=== PATIENT | male | born 1960 | race Caucasian/White ===

== ENCOUNTER 2016-10-03 06:52 | Day surgery (SDC) | payer OTHER ==
[~2016-10-03] VITALS: Ht 172.7 cm; Wt 103.6 kg
[~2016-10-03 06:52] MED LIST: AMLO5TAB2 PO; BACL20TA PO; MORP1TAB26 PO; MSIR30 PO; NITR1SUB3; POLY3350 PO
[2016-10-03 07:18] VITALS: BP 157/115; PULSE 59; RESP 20; TEMP 98.3; O2SAT 94
[2016-10-03 07:48] LABS: AUTOMATED NEUTROPHIL # 3.2 TH/MM3 (1.8-7.7); BASOPHIL % 0.8 % (0.0-2.0); EOSINOPHIL # 0.3 TH/MM3 (0-0.4); HEMATOCRIT 43.9 % (39.0-51.0); HEMO FLAGS DIFF FINAL; LYMPH % 35.4 % (9.0-44.0); LYMPHOCYTE # 2.2 TH/MM3 (1.0-4.8); MEAN CELL VOLUME 87.5 FL (80.0-100.0); MEAN CORPUSCULAR HEMOGLOBIN 30.1 PG (27.0-34.0); MEAN CORPUSCULAR HGB CONC 34.3 % (32.0-36.0); MONO % 8.9 % (0.0-8.0); NEUT % 50.9 % (16.0-70.0); PLATELET COUNT 215 TH/MM3 (150-450); RED BLOOD COUNT 5.02 MIL/MM3 (4.50-5.90); WHITE BLOOD COUNT 6.2 TH/MM3 (4.0-11.0)
[2016-10-03 07:55] LABS: APTT (PATIENT) 26.4 SEC (24.3-30.1); PROTHROMBIN TIME - PATIENT 10.8 SEC (9.8-11.6)
[2016-10-03 07:58] LABS: BICARBONATE 29.1 MEQ/L (21.0-32.0); POTASSIUM 4.2 MEQ/L (3.5-5.1)
[2016-10-03] MEDS ORDERED: DIAZEPAM 10 MG TAB PO ONE (08:15)
--- NOTE | 2016-10-03 08:57 | PD.RAD ---
Post Procedure Progress Note Pre Procedure Diagnosis: (1) Lumbar disc disease with radiculopathy Post Procedure Diagnosis: (1) Lumbar disc disease with radiculopathy Procedure Date: October 03, 2016 Supervising Radiologist: Rob Cyr JR Proceduralist/Assist: Arielle Bolton, RT(R)(), Pedro Shaw RT(R) Anesthesia: Local Plan of Activity Patient to Unit: [facility] Patient Condition: Good See PACS Report for procedural detail/treatment Spinal Procedure Myelogram L4-L5 Fluid Description: Clear Puncture Time: 08:45 Findings: Complete myelogram from lumbar access. CT pending. Jr. Ger,Rob Perea MD October 03, 2016 08:57
[2016-10-03] MEDS ORDERED: oxyCODONE/ACETAMINOPHEN 5 MG/325 MG TAB PO PRN (09:00)
[2016-10-03] MEDS ORDERED: IOHEXOL 300 MG/ML 50 ML BTL (for RAD DIAG) ONE (09:11)
--- NOTE | 2016-10-03 10:05 | RADRPT ---
EXAM DATE/TIME: 10/03/2016 09:27 [facility] COMPARISON: No previous studies available for comparison. INDICATIONS : Patient with a history of myelopathy. MEDICAL HISTORY : DDD lumbar/cervical neuropathy bilateral legs Arthritis GERD Barretts esophagus Claustrophobia Headaches Dizziness SURGICAL HISTORY : Lumbar fusion Cholecystectomy Lt. hip replacement Cervical and lumbar hardware ENCOUNTER: Initial ACUITY: > 1 year PAIN SCORE: 8/10 LOCATION: Headache LUMBAR PUNCTURE TIME: 0845 hours FLUORO TIME: 1.0 minutes IMAGE SERIES: 3 CONTRAST: 18 cc Omnipaque (iohexol) 300 ACCESS LEVEL: L4-5 PROCEDURE : 1. Fluoroscopic guided lumbar puncture. 2. Instillation of intrathecal contrast. 3. Total spinal axis myelogram. The risks, benefits and alternatives to the procedure were explained and verbal and written consent w as obtained. The site was prepped in sterile fashion. Full sterile technique was used, including ca p, mask, sterile gloves and gown and a large sterile sheet. Hand hygiene and 2% chlorhexidine and/or betadine/alcohol prep was utilized per protocol for cutaneous antisepsis. The skin and subcutaneous tissues were infiltrated with local anesthetic solution. With fluoroscopic guidance the lumbar thecal sac was punctured at level above and a diagnostic quanti ty of contrast is present in the subarachnoid space. Following the lumbar radiographs contrast was r un cephalad and radiographs were obtained of the thoracic spine. Under fluoroscopic guidance contras t was placed in the cervical region and radiographs were obtained of the cervical region. The patient tolerated procedure well and there were no complications. CT scan is to be performed for further evaluation. CONCLUSION: Uncomplicated total axis myelogram as above. CT scan is to be performed for further evaluation. Rob Cyr Jr., MD on October 03, 2016 at 10:02 Board Certified Radiologist. This report was verified electronically.
[2016-10-03 10:20] VITALS: BP 146/73; PULSE 59; RESP 20; TEMP 97.5; O2SAT 92
--- NOTE | 2016-10-03 10:37 | RADRPT ---
EXAM DATE/TIME: 10/03/2016 10:01 [facility] COMPARISON: No previous studies available for comparison. INDICATIONS : Post-myelogram evaluation. RADIATION DOSE: 29.29 CTDIvol (mGy) MEDICAL HISTORY : Hypertension. Hernia, hiatal. Degenerative disc disease. SURGICAL HISTORY : Fusion, lumbar. Left hip replacement. ENCOUNTER: Initial ACUITY: 1 day PAIN SCALE: 4/10 LOCATION: neck TECHNIQUE: Volumetric scanning of the cervical spine was performed. Multiplanar reconstructions in the sagittal, coronal and oblique axial planes were performed. Using automated exposure control and adjustment o f the mA and/or kV according to patient size, radiation dose was kept as low as reasonably achievable to obtain optimal diagnostic quality images. FINDINGS: Sagittal images demonstrate normal vertebral body alignment and curvature. The odontoid is intact. Th e occipital condyles and lateral masses of C1 are intact. Axial images were performed from C2-C3 to C7-T1. The exam is performed following myelography. Artificial disc is present at C5-C6. C2-C3: No significant abnormalities identified. C3-C4: There is uncovertebral joint hypertrophy on the right side. This compromises the exiting right-sided nerve root exit zone. There is no significant spinal canal stenosis. The neural foramina are clear bi laterally. C4-C5: No significant abnormalities identified. C5-C6: Postsurgical changes as above. There is no significant spinal canal stenosis. C6-C7: There is mild diffuse annular bulge of the disc. The neural foramina are clear bilaterally. There is no significant spinal canal stenosis. C7-T1: There is no evidence of disc protrusion or spinal canal stenosis. CONCLUSION: 1. Postsurgical changes as above. 2. Uncovertebral hypertrophy on the right compromising the exiting right C4 nerve root. There is no s ignificant spinal canal stenosis. Jase Yanez MD on October 03, 2016 at 10:25 Board Certified Radiologist. This report was verified electronically.
--- NOTE | 2016-10-03 10:45 | RADRPT ---
EXAM DATE/TIME: 10/03/2016 10:04 [facility] COMPARISON: No previous studies available for comparison. INDICATIONS : Post-myelogram evaluation. RADIATION DOSE: 31.39 CTDIvol (mGy) ; Combined studies - Thoracic Spine/Lumbar Spine MEDICAL HISTORY : Hypertension. Hernia, hiatal. Degenerative disc disease. SURGICAL HISTORY : Fusion, lumbar. Left hip replacement. ENCOUNTER: Initial ACUITY: 1 day PAIN SCALE: 5/10 LOCATION: spine. TECHNIQUE: Volumetric scanning of the thoracic spine was performed. Multiplanar reconstructions in the sagittal , coronal and oblique axial planes were performed. Using automated exposure control and adjustment o f the mA and/or kV according to patient size, radiation dose was kept as low as reasonably achievable to obtain optimal diagnostic quality images. FINDINGS: The vertebral bodies of the thoracic spine are in normal alignment without evidence of subluxation. T here is mild endplate irregularity at multiple levels consistent with Schmorl's node formations. No e vidence of acute fracture. Some sclerosis along the anterior inferior plate of T12. Vertebral body height is maintained. No fractures are seen. T1-T2: Normal. T2-T3: The thecal sac has a normal diameter. No evidence of disc bulge or protrusion. T3-T4: The thecal sac has a normal diameter. No evidence of disc bulge or protrusion. T4-T5: The thecal sac has a normal diameter. No evidence of disc bulge or protrusion. T5-T6: The thecal sac has a normal diameter. No evidence of disc bulge or protrusion. T6-T7: The thecal sac has a normal diameter. No evidence of disc bulge or protrusion. T7-T8: The thecal sac has a normal diameter. No evidence of disc bulge or protrusion. T8-T9: The thecal sac has a normal diameter. No evidence of disc bulge or protrusion. T9-T10: The thecal sac has a normal diameter. No evidence of disc bulge or protrusion. T10-T11: The thecal sac has a normal diameter. No evidence of disc bulge or protrusion. T11-T12: The thecal sac has a normal diameter. No evidence of disc bulge or protrusion. T12-L1: The thecal sac has a normal diameter. No evidence of disc bulge or protrusion. CONCLUSION: Normal examination. Jose Stevenson MD on October 03, 2016 at 10:42 Board Certified Radiologist. This report was verified electronically.
--- NOTE | 2016-10-03 10:57 | RADRPT ---
EXAM DATE/TIME: 10/03/2016 10:04 [facility] COMPARISON: No previous studies available for comparison. INDICATIONS : Post-myelogram evaluation. RADIATION DOSE: 31.39 CTDIvol (mGy) ; Combined studies - Thoracic Spine/Lumbar Spine MEDICAL HISTORY : Hypertension. Hernia, hiatal. Degenerative disc disease. SURGICAL HISTORY : Fusion, lumbar. Left hip replacement. ENCOUNTER: Initial ACUITY: 1 day PAIN SCALE: 5/10 LOCATION: spine. TECHNIQUE: Volumetric scanning of the lumbar spine was performed. Multiplanar reconstructions in the sagittal, coronal and oblique axial planes were performed. Using automated exposure control and adjustment of the mA and/or kV according to patient size, radiation dose was kept as low as reasonably achievable t o obtain optimal diagnostic quality images. FINDINGS: Sagittal images demostrate normal vertebral body alignment and curvature. No fractures are identified . Axial images performed from T12-L1 through L5-S1. There is anterior and posterior fusion from L2-S1 sparing the L5 level. T12-L1: No significant abnormalities identified. L1-L2: No significant abnormalities identified. L2-L3: No significant abnormalities identified. L3-L4: Laminectomy defect is present. There is no significant spinal canal stenosis. The neural foramina are clear bilaterally. L4-L5: Laminectomy defect is present. There is no significant spinal canal stenosis. The neural foramina are clear bilaterally. L5-S1: Laminectomy defect is present. There is no significant spinal canal stenosis. There is mild foraminal narrowing of the exiting S1 nerve root. CONCLUSION: 1. Postsurgical changes as above. 2. There is no significant spinal canal stenosis. 3. Mild narrowing of the exiting right S1 nerve root foramen Jase Yanez MD on October 03, 2016 at 10:51 Board Certified Radiologist. This report was verified electronically.
[2016-10-03 13:10] VITALS: BP 149/79; PULSE 56; RESP 16; O2SAT 95
== END 2016-10-03 13:30 | disposition home or self-care (01) ==
LOC: HROP 06:52 → HRIP 06:53 → HROP 13:30
PROVIDERS: ATTEND Neurological Surgery
DX: M51.16 Intervertebral disc disorders with radiculopathy, lumbar region (principal)
CPT/HCPCS: 62305; 72125; 72128; 72131; 80048; 85025; 85610; 85730; Q9967

== ENCOUNTER 2016-10-04 15:47 | Inpatient (IN) | payer OTHER, MEDICARE ==
[~2016-10-04] VITALS: Ht 172.7 cm; Wt 102.2 kg
[2016-10-04 15:49] VITALS: BP 176/82; PULSE 92; RESP 14; TEMP 98.7; O2SAT 96
--- NOTE | 2016-10-04 15:54 | PD ---
Physical Exam Date Seen by Provider: October 04, 2016 Time Seen by Provider: 15:49 Narrative 56 YOWM C/O ROWLAND,VERTIGO,MALAISE S/P MYELOGRAM YEST . SENT IN BY DR VU FOR EVAL. H/O MULTIPLE BACK SURGERIES. VVS WAITING FOR BED PLACEMENT MDM Medical Record Reviewed: Yes Supervised Visit with TANK: Pete Butcher October 04, 2016 15:54
[2016-10-04] MEDS ORDERED: ONDANSETRON HCL 4 MG/2 ML VIAL IVP ONE (17:30)
[2016-10-04] MEDS ORDERED: SODIUM CHLORIDE 0.9% FLUSH 10 ML FLUSH IVF PRN (17:30)
--- NOTE | 2016-10-04 18:00 | PD ---
HPI Chief Complaint: Headache Time Seen by Provider: 17:30 Travel History International Travel<30 days: No Contact w/Intl Traveler<30days: No Traveled to known affect area: No History of Present Illness HPI This is a patient who underwent a myelogram yesterday at the order of neurosurgeon Dr. Lamas. He presents with headaches and vertigo sensation ever since the myelogram yesterday. He describes it as a generalized head pressure. He describes a vertigo sensation as an off-balance sensation when he is walking or moving. He endorses some nausea as well. Denies chest pain or shortness of breath, vomiting, syncope, abdominal pain, numbness or tingling or weakness in extremities. He called Dr. Lamas's office today and was referred here. He has no other complaints. PFSH Past Medical History Arthritis: Yes Autoimmune Disease: No Anxiety: No Depression: No Heart Rhythm Problems: No Cancer: No Cardiovascular Problems: No High Cholesterol: No Chest Pain: No Congestive Heart Failure: No Cerebrovascular Accident: No Diabetes: No Endocrine: No GERD: No Genitourinary: No Hepatitis: No Hiatal Hernia: Yes Immune Disorder: No Musculoskeletal: Yes (ARTHRITIS) Neurologic: Yes (DDD LUMBAR/ CERVICAL, NEUROPATHY GIOVANNI. LEGS) Psychiatric: Yes (CLAUSTROPHOBIC (MRI)) Reproductive: No Respiratory: No Immunizations Current: No Migraines: No Seizures: No Thyroid Disease: No Ulcer: No Past Surgical History Abdominal Surgery: Yes (CHOLECYSTECTOMY) AICD: No Arteriovenous Shunt: No Body Medical Devices: CERVICAL/ LUMBAR HARDWARE Cardiac Surgery: No Ear Surgery: No Endocrine Surgery: No Eye Surgery: No Genitourinary Surgery: No Gynecologic Surgery: No Insulin Pump: No Joint Replacement: Yes (LEFT HIP) Oral Surgery: No Pacemaker: No Thoracic Surgery: No Social History Tobacco Use: Yes Substance Use: No Allergies-Medications (Allergen,Severity, Reaction): Coded Allergies: Aleve (Verified Allergy, Severe, STOMACH PAIN, 10/04/16) Ibuprofen (Verified Allergy, Severe, NAUSEA VOMITING, 10/04/16) WITH ORAL DOSE Reported Meds & Prescriptions Reported Meds & Active Scripts Active Reported Nitroglycerin SL (Nitroglycerin) 0.4 Mg Subl PRN Amlodipine (Amlodipine Besylate) 5 Mg Tab PO DAILY@0600 Polyethylene Glycol 3350 1 Pow Pow PO DAILY Morphine IR (Morphine Sulfate) 30 Mg Tab PO BID Morphine ER (Morphine Sulfate) 60 Mg Tab PO TID Baclofen 20 Mg Tab PO DIRECTED PRN Review of Systems Except as stated in HPI: all other systems reviewed are Neg Physical Exam Narrative GENERAL: Well-developed well-nourished male in no acute distress SKIN: Warm and dry. HEAD: Atraumatic. Normocephalic. EYES: Pupils equal and round. No scleral icterus. No injection or drainage. ENT: No nasal bleeding or discharge. Mucous membranes pink and moist. NECK: Trachea midline. No JVD. CARDIOVASCULAR: Regular rate and rhythm. No murmur appreciated. RESPIRATORY: No accessory muscle use. Clear to auscultation. Breath sounds equal bilaterally. GASTROINTESTINAL: Abdomen soft, non-tender, nondistended. Hepatic and splenic margins not palpable. MUSCULOSKELETAL: No obvious deformities. No edema NEUROLOGICAL: Awake and alert. No obvious cranial nerve deficits. Motor grossly within normal limits. Normal speech. Some difficulty with finger to nose and heel to lopez examination. He was ataxic and unsteady when standing. PSYCHIATRIC: Appropriate mood and affect; insight and judgment normal. Data Data Last Documented VS Vital Signs Date Time Temp Pulse Resp B/P Pulse Ox O2 Delivery O2 Flow Rate FiO2 10/04/16 18:35 56 18 160/81 96 Room Air 10/04/16 15:49 98.7 Orders Electrocardiogram (10/04/16 17:28) Basic Metabolic Panel (Bmp) (10/04/16 17:28) Complete Blood Count With Diff (10/04/16 17:28) Magnesium (Mg) (10/04/16 17:28) Ckmb (Isoenzyme) Profile (10/04/16 17:28) Troponin I (10/04/16 17:28) Ecg Monitoring (10/04/16 17:28) Iv Access Insert/Monitor (10/04/16 17:28) Oximetry (10/04/16 17:28) Ondansetron Inj (Zofran Inj) (10/04/16 17:30) Sodium Chloride 0.9% Flush (Ns Flush) (10/04/16 17:30) Ct Brain W/O Iv Contrast(Rout) (10/04/16 ) Morphine Inj (Morphine Inj) (10/04/16 18:15) CKMB (10/04/16 18:00) CKMB% (10/04/16 18:00) Admit Order (Ed Use Only) (10/04/16 19:26) Hydromorphone Pf Inj (Dilaudid Pf Inj) (10/04/16 19:30) Labs Laboratory Tests Test 10/04/16 18:00 White Blood Count 5.7 TH/MM3 Red Blood Count 5.03 MIL/MM3 Hemoglobin 14.8 GM/DL Hematocrit 44.4 % Mean Corpuscular Volume 88.3 FL Mean Corpuscular Hemoglobin 29.4 PG Mean Corpuscular Hemoglobin 33.3 % Concent Red Cell Distribution Width 14.1 % Platelet Count 197 TH/MM3 Mean Platelet Volume 8.0 FL Neutrophils (%) (Auto) 54.0 % Lymphocytes (%) (Auto) 34.7 % Monocytes (%) (Auto) 7.6 % Eosinophils (%) (Auto) 3.2 % Basophils (%) (Auto) 0.5 % Neutrophils # (Auto) 3.1 TH/MM3 Lymphocytes # (Auto) 2.0 TH/MM3 Monocytes # (Auto) 0.4 TH/MM3 Eosinophils # (Auto) 0.2 TH/MM3 Basophils # (Auto) 0.0 TH/MM3 CBC Comment DIFF FINAL Differential Comment Sodium Level 146 MEQ/L Potassium Level 3.6 MEQ/L Chloride Level 110 MEQ/L Carbon Dioxide Level 24.3 MEQ/L Anion Gap 12 MEQ/L Blood Urea Nitrogen 12 MG/DL Creatinine 0.90 MG/DL Estimat Glomerular Filtration 87 ML/MIN Rate Random Glucose 94 MG/DL Calcium Level 8.6 MG/DL Magnesium Level 2.0 MG/DL Total Creatine Kinase 217 U/L Creatine Kinase MB 6.0 NG/ML Troponin I LESS THAN 0.02 NG/ML MDM Medical Decision Making Medical Screen Exam Complete: Yes Emergency Medical Condition: Yes Medical Record Reviewed: Yes Differential Diagnosis Postmyelogram headache, subarachnoid hemorrhage, arrhythmia, CVA, TIA, electrolyte abnormality, central vertigo, peripheral vertigo Narrative Course 56-year-old male who underwent myelogram procedure yesterday has been expressing a headache and vertigo sensation ever since. Discussed with the circulating nurse who is in the operating room with his neurosurgeon Dr. Lamas. Suggested pain control, CT of the brain. Basic lab work, EKG, CT brain up and ordered. Upon examination the patient has persistent 8 out of 10 headache after morphine and Zofran administration. Discussed once again with the circulating nurse who is in the operating room with Dr. Lamas who is providing the patient with the option of admission for observation versus discharge. The patient would prefer to be admitted. Therefore the patient is being admitted to Dr. Lamas. Additional pain medication has been ordered. Diagnosis Primary Impression: Intractable headache Qualified Code: R51 - Acute intractable headache, unspecified headache type Additional Impression: Vertigo Admitting Information Admitting Physician Requests: Observation Alcides Trujillo October 04, 2016 18:00 Alcides Trujillo October 04, 2016 18:00
[2016-10-04] MEDS ORDERED: MORPHINE SULFATE 8 MG/ML INJ IV PUSH ONE (18:15)
[2016-10-04 18:21] LABS: AUTOMATED NEUTROPHIL # 3.1 TH/MM3 (1.8-7.7); BASOPHIL % 0.5 % (0.0-2.0); EOSINOPHIL # 0.2 TH/MM3 (0-0.4); EOSINOPHIL % 3.2 % (0.0-4.0); HEMATOCRIT 44.4 % (39.0-51.0); HEMO FLAGS DIFF FINAL; LYMPH % 34.7 % (9.0-44.0); MEAN CELL VOLUME 88.3 FL (80.0-100.0); MEAN CORPUSCULAR HEMOGLOBIN 29.4 PG (27.0-34.0); MEAN CORPUSCULAR HGB CONC 33.3 % (32.0-36.0); MONO % 7.6 % (0.0-8.0); PLATELET COUNT 197 TH/MM3 (150-450); RED BLOOD COUNT 5.03 MIL/MM3 (4.50-5.90); RED CELL DISTRIBUTION WIDTH 14.1 % (11.6-17.2); WHITE BLOOD COUNT 5.7 TH/MM3 (4.0-11.0)
[2016-10-04 18:35] VITALS: BP 160/81; PULSE 56; RESP 18; O2SAT 96
[2016-10-04 18:37] LABS: ANION GAP 12 MEQ/L (5-15); BICARBONATE 24.3 MEQ/L (21.0-32.0); BLOOD UREA NITROGEN 12 MG/DL (7-18); CHLORIDE 110 MEQ/L (98-107); GLOMERULAR FILTRATION RATE 87 ML/MIN (>89); POTASSIUM 3.6 MEQ/L (3.5-5.1); SODIUM (NA) 146 MEQ/L (136-145)
[2016-10-04 18:42] LABS: CREATINE KINASE 217 U/L (39-308)
--- NOTE | 2016-10-04 18:43 | RADRPT ---
EXAM DATE/TIME: 10/04/2016 18:20 [facility] COMPARISON: MYELOGRAM, CERVICAL, THORACIC AND LUMBAR SPINE, October 03, 2016, 9:27. INDICATIONS : Headache, nausea and vertigo 1 day post myelogram RADIATION DOSE: 56.39 CTDIvol (mGy) MEDICAL HISTORY : Hypertension. SURGICAL HISTORY : None. ENCOUNTER: Initial ACUITY: 1 day PAIN SCALE: 6/10 LOCATION: Bilateral cranial TECHNIQUE: Multiple contiguous axial images were obtained of the head. Using automated exposure control and adj ustment of the mA and/or kV according to patient size, radiation dose was kept as low as reasonably a chievable to obtain optimal diagnostic quality images. FINDINGS: Contrast from yesterday's myelogram is seen throughout the subarachnoid spaces. Subarachnoid blood ca nnot be excluded by this study. No parenchymal, epidural or subdural blood demonstrated. Ventricles a re normal in size and configuration. There is no mass, mass effect or midline shift seen. No evidence of an acute ischemic event. CONCLUSION: Contrast diffusely in the subarachnoid spaces as above. No acute abnormality seen. Fransisco Verdugo MD on October 04, 2016 at 18:39 Board Certified Radiologist. This report was verified electronically.
[2016-10-04] MEDS ORDERED: HYDROmorphone HCL PF 1 MG/ML VIAL IV PUSH ONE (19:30)
[2016-10-04 20:40] VITALS: BP 120/66; PULSE 55; RESP 18; O2SAT 98
[2016-10-04] MEDS ORDERED: ONDANSETRON HCL 4 MG/2 ML VIAL IV PRN (22:15)
[2016-10-04] MEDS ORDERED: NALOXONE HCL 0.4 MG/ML AMP IV PRN (22:15)
[2016-10-04] MEDS ORDERED: ACETAMINOPHEN/HYDROcodone 325 MG/5 MG TAB PO PRN (22:15)
[2016-10-04] MEDS ORDERED: SODIUM CHLORIDE 0.9% FLUSH 5 ML FLUSH IVF PRN (22:15)
[2016-10-04 23:36] VITALS: BP 137/86; PULSE 53; RESP 18; O2SAT 95
[2016-10-04] MEDS: D5-NS + KCL 20 MEQ INJ 1,000 ML IV SCH (23:38)
--- NOTE | 2016-10-04 23:45 | HHI.HP ---
[facility] Service Neurosurgery Primary Care Physician Alla Bartholomew MD Chief Complaint: Headache, nausea status post lumbar puncture History of Present Illness 56-year-old male with spinal stenosis, history of previous spinal surgery, underwent myelogram-CT scan of the spine 10/03/16. Postoperatively, he has had persistent severe headache with intermittent nausea. No fevers or chills. No increased neck pain or stiffness since the myelogram. Presented to the emergency room today due to the intractable headache, not relieved with bedrest. Due to non-positional headache, patient has undergone CT scan of the brain Review of Systems Constitutional: DENIES: Fever, Chills Eyes: DENIES: Blurred vision, Diplopia Ears, nose, mouth, throat: DENIES: Vertigo Respiratory: DENIES: Cough, Shortness of breath Cardiovascular: DENIES: Chest pain, Palpitations Gastrointestinal: COMPLAINS OF: Nausea, DENIES: Abdominal pain Genitourinary: DENIES: Urinary incontinence Musculoskeletal: COMPLAINS OF: Back pain, Neck pain Hematologic/lymphatic: DENIES: Bruising Neurologic: COMPLAINS OF: Headache, DENIES: Localized weakness Psychiatric: DENIES: Confusion Past Family Social History Allergies: Coded Allergies: Aleve (Verified Allergy, Severe, STOMACH PAIN, 10/04/16) Ibuprofen (Verified Allergy, Severe, NAUSEA VOMITING, 10/04/16) WITH ORAL DOSE Past Medical History Arthritis Hiatal hernia Past Surgical History Left hip arthroplasty Cervical spine surgery-artificial disc placement approximately 4 years ago Lumbar spine surgery 2-last procedure approximately 2 years ago Reported Medications Reported Meds & Active Scripts Active Reported Nitroglycerin SL (Nitroglycerin) 0.4 Mg Subl PRN Amlodipine (Amlodipine Besylate) 5 Mg Tab PO DAILY@0600 Polyethylene Glycol 3350 1 Pow Pow PO DAILY Morphine IR (Morphine Sulfate) 30 Mg Tab PO BID Morphine ER (Morphine Sulfate) 60 Mg Tab PO TID Baclofen 20 Mg Tab PO DIRECTED PRN Social History Smokes cigarettes No significant alcohol Physical Exam Vital Signs Vital Signs Date Time Temp Pulse Resp B/P Pulse Ox O2 Delivery O2 Flow Rate FiO2 10/04/16 23:36 53 18 137/86 95 Room Air 10/04/16 20:40 55 18 97 Room Air 10/04/16 20:40 55 18 120/66 98 Room Air 10/04/16 18:35 56 18 160/81 96 Room Air 10/04/16 18:35 56 18 160/81 96 Room Air 10/04/16 15:49 98.7 92 14 176/82 96 Physical Exam Respirations clear and regular Pulse regular Abdomen soft nontender No nuchal rigidity Awake and alert Oriented X 3 Speech is clear Conversant and appropriate Follow simple commands well Answers questions appropriately Reasonable judgment and insight Recent and remote memory are intact No evidence of anxiety or depression Pupils are equal and reactive to accommodation. Extra-ocular movements, visual pena to confrontation, facial sensorimotor, tongue, palate, sternocleidomastoid testing, hearing to finger rub testing, and bilateral shoulder shrug are all intact. Sensation is moderately diminished to light touch primarily ulnar distribution left upper extremity and bilateral anterior thighs Strength normal major flexion and extension groups all extremities May's absent bilaterally No ankle clonus Plantar responses absent bilateral Fine motor movements intact upper extremities Laboratory Laboratory Tests Test 10/04/16 18:00 White Blood Count 5.7 Red Blood Count 5.03 Hemoglobin 14.8 Hematocrit 44.4 Mean Corpuscular Volume 88.3 Mean Corpuscular Hemoglobin 29.4 Mean Corpuscular Hemoglobin 33.3 Concent Red Cell Distribution Width 14.1 Platelet Count 197 Mean Platelet Volume 8.0 Neutrophils (%) (Auto) 54.0 Lymphocytes (%) (Auto) 34.7 Monocytes (%) (Auto) 7.6 Eosinophils (%) (Auto) 3.2 Basophils (%) (Auto) 0.5 Neutrophils # (Auto) 3.1 Lymphocytes # (Auto) 2.0 Monocytes # (Auto) 0.4 Eosinophils # (Auto) 0.2 Basophils # (Auto) 0.0 CBC Comment DIFF FINAL Differential Comment Sodium Level 146 Potassium Level 3.6 Chloride Level 110 Carbon Dioxide Level 24.3 Anion Gap 12 Blood Urea Nitrogen 12 Creatinine 0.90 Estimat Glomerular Filtration 87 Rate Random Glucose 94 Calcium Level 8.6 Magnesium Level 2.0 Total Creatine Kinase 217 Creatine Kinase MB 6.0 Troponin I LESS THAN 0.02 Result Diagram: 10/04/16 1800 10/04/16 1800 Imaging 10/04/16 CT scan head images reviewed by the undersigned. Agree with findings as noted below: Head CT 10/04/16 0000 Signed Impressions: Service Date/Time: Tuesday, October 04, 2016 18:20 - CONCLUSION: Contrast diffusely in the subarachnoid spaces as above. No acute abnormality seen. Fransisco Verdugo MD Assessment and Plan Assessment and Plan Impression: 1. Low pressure CSF headache with nausea related to recent lumbar puncture. Pain today has been quite severe, not controlled with positioning or medications at home. 2. Spinal stenosis 3. Probable left ulnar neuropathy Plan: Patient will be admitted for control of intractable pain, close observation neurologic checks. Discussed with anesthesia today. Patient will continue observation for the initial 2-3 days and then will have a blood patch performed if symptoms persist Continue flat bedrest Non-chemical DVT prophylaxis Juanjo Lamas MD October 04, 2016 23:44
[2016-10-05] VITALS: BP 158/72; PULSE 53; RESP 22; TEMP 97.1; O2SAT 97
[2016-10-05] MEDS: HYDROmorphone HCL PF 1 MG/ML VIAL IV PRN ×4 (03:14→17:45)
[2016-10-05 04:00] VITALS: BP 169/77; PULSE 60; RESP 24; TEMP 97.8; O2SAT 95
[2016-10-05] MEDS: MORPHINE SULFATE 30 MG CONTROLLED RELEASE TAB PO SCH ×3 (05:25→20:56)
[2016-10-05 05:56] LABS: POTASSIUM 4.2 MEQ/L (3.5-5.1)
[2016-10-05 08:10] VITALS: BP 143/92; PULSE 51; RESP 22; TEMP 97.5; O2SAT 94
[2016-10-05] MEDS: D5-NS + KCL 20 MEQ INJ 1,000 ML IV SCH ×2 (08:10→09:10)
[2016-10-05] MEDS: amLODIPine BESYLATE 5 MG TAB PO SCH (08:51)
[2016-10-05] MEDS: DOCUSATE SODIUM 100 MG CAP PO SCH ×2 (08:51→20:56)
[2016-10-05] MEDS: PANTOPRAZOLE SOD 40 MG DELAYED RELEASE TAB PO SCH (08:51)
[2016-10-05] MEDS: HYDROmorphone HCL 2 MG TAB PO PRN (08:52)
[2016-10-05] MEDS: SODIUM CHLORIDE 0.9% FLUSH 5 ML FLUSH IVF SCH ×2 (08:54→20:57)
[2016-10-05] MEDS: MORPHINE SULFATE 4 MG/ML INJ IV PRN ×4 (11:54→22:15)
[2016-10-05 12:13] VITALS: BP 127/67; PULSE 52; RESP 22; TEMP 97.2; O2SAT 97
--- NOTE | 2016-10-05 13:54 | HHI.NSPN ---
(Peter Fuentes) Note Status Status: Progress Note (Peter Fuentes) Interval History Interval History 10/04: 56-year-old male with spinal stenosis, history of previous spinal surgery , underwent myelogram-CT scan of the spine 10/03/16. Postoperatively, he has had persistent severe headache with intermittent nausea. No fevers or chills. No increased neck pain or stiffness since the myelogram. Presented to the emergency room today due to the intractable headache, not relieved with bedrest. Due to non-positional headache, patient is undergone CT scan of the brain 10/05: Patient doing good this afternoon when seen. He states that he has a headache, back pain, numbness to the legs with the right worse and tingling to the anterior thighs. (Peter Fuentes) Labs, Micro, & Vital Signs Results Allergies Coded Allergies Type Severity Reaction Last Updated Verified Aleve Allergy Severe STOMACH PAIN 10/04/16 Yes Ibuprofen Allergy Severe NAUSEA VOMITING 10/04/16 Yes Recent Impressions Head CT 10/04/16 0000 Signed Impressions: Service Date/Time: Tuesday, October 04, 2016 18:20 - CONCLUSION: Contrast diffusely in the subarachnoid spaces as above. No acute abnormality seen. Fransisco Verdugo MD Laboratory Tests Test 10/04/16 10/05/16 18:00 04:53 White Blood Count 5.7 TH/MM3 Red Blood Count 5.03 MIL/MM3 Hemoglobin 14.8 GM/DL Hematocrit 44.4 % Mean Corpuscular Volume 88.3 FL Mean Corpuscular Hemoglobin 29.4 PG Mean Corpuscular Hemoglobin 33.3 % Concent Red Cell Distribution Width 14.1 % Platelet Count 197 TH/MM3 Mean Platelet Volume 8.0 FL Neutrophils (%) (Auto) 54.0 % Lymphocytes (%) (Auto) 34.7 % Monocytes (%) (Auto) 7.6 % Eosinophils (%) (Auto) 3.2 % Basophils (%) (Auto) 0.5 % Neutrophils # (Auto) 3.1 TH/MM3 Lymphocytes # (Auto) 2.0 TH/MM3 Monocytes # (Auto) 0.4 TH/MM3 Eosinophils # (Auto) 0.2 TH/MM3 Basophils # (Auto) 0.0 TH/MM3 CBC Comment DIFF FINAL Differential Comment Sodium Level 146 MEQ/L 144 MEQ/L Potassium Level 3.6 MEQ/L 4.2 MEQ/L Chloride Level 110 MEQ/L 111 MEQ/L Carbon Dioxide Level 24.3 MEQ/L 26.0 MEQ/L Anion Gap 12 MEQ/L 7 MEQ/L Blood Urea Nitrogen 12 MG/DL 13 MG/DL Creatinine 0.90 MG/DL 0.87 MG/DL Estimat Glomerular Filtration 87 ML/MIN 90 ML/MIN Rate Random Glucose 94 MG/DL 119 MG/DL Calcium Level 8.6 MG/DL 8.6 MG/DL Magnesium Level 2.0 MG/DL Total Creatine Kinase 217 U/L Creatine Kinase MB 6.0 NG/ML Troponin I LESS THAN 0.02 NG/ML Constitutional Vital Signs Date Time Temp Pulse Resp B/P Pulse Ox O2 Delivery O2 Flow Rate FiO2 10/05/16 12:13 97.2 52 22 127/67 97 10/05/16 08:10 97.5 51 22 143/92 94 10/05/16 04:00 97.8 60 24 169/77 95 10/05/16 00:00 97.1 53 22 158/72 97 10/04/16 23:36 53 18 137/86 95 Room Air 10/04/16 20:40 55 18 97 Room Air 10/04/16 20:40 55 18 120/66 98 Room Air 10/04/16 18:35 56 18 160/81 96 Room Air 10/04/16 18:35 56 18 160/81 96 Room Air 10/04/16 15:49 98.7 92 14 176/82 96 (Peter Fuentes) Review of Systems/Exam ROS Constitutional: Patient denies any fever or chills. Neck: Patient complains of pain to the neck. Respiratory: Patient denies any shortness of breath or productive cough. Cardiovascular: Patient denies any chest pain, palpitations or irregular heart beat. Gastrointestinal: Patient denies any abdominal pain, nausea, vomiting or bowel incontinence. Extremities: Patient denies any pain or weakness to the extremities. Neurological: Patient has a headache and numbness to both legs, the right being worse. He also has tingling to both anterior thighs. He denies dizziness. Exam General: Well developed, well nourished male who appears his stated age, NAD. HEENT: Normocephalic, atraumatic. Respiratory: CTAB w/o W/R/R, equal excursion, non-laboured, on RA. Cardiovascular: S1S2 w/RRR w/o M/G/R, radial pulses 2+ bilaterally. Gastrointestinal: Abdomen soft, nontender, positive bowel sounds. Extremities: CASTILLO, no evident deformity, discolouration or clubbing noted. Neurological: AAOx3 Speech clear & appropriate Follows simple commands Decreasee sensation to both lower extremities. Motor strength 5/5 RUE & RLE and 4/5 LUE & LLE. (Peter Fuentes) Medical Decision Making MDM Remarks Impression: 1. Low pressure CSF headache with nausea related to recent lumbar puncture. Pain today has been quite severe, not controlled with positioning or medications at home. 2. Spinal stenosis Patient admitted for control of intractable pain Possible B12 toxicity contributing to BLE numbness, patient has taken B12 for years (Peter Fuentes) Plan Plan Remarks Pain control Close observation neurologic checks Will watch for 2-3 days and have a blood patch performed if symptoms persist ESR, CRP, TSH & CMP, vitamin B12 in AM (Peter Fuentes) Attending Statement I have personally seen and examined the patient on the date of this note. Pertinent documentation and study results have been reviewed by the undersigned. I have personally developed the treatment plan and performed medical decision making. Agree with findings, exam, and treatment plan as noted above. Continued decreased sensation left ulnar nerve distribution Continued decreased sensation primarily proximal anterior lower extremities. Discussed at length with patient. Findings of myelogram CT scan 10/04/16 images which had been reviewed by the undersigned discussed at length with the patient. There is no evidence of any significant canal or foraminal or lateral recess stenosis throughout the cervical, thoracic, lumbar spine. The cervical artificial disc in the lumbar instrumentation are all in very good position. No evidence of spinal instability I discussed with him other potential possibilities for his symptoms. A left upper extremity EMG as an outpatient as recommended to assess for possible left ulnar neuropathy. Possibility of autoimmune, inflammatory disorder discussed. I inquired regarding other potential sources of his lower extremity symptoms. He does state that he has been on high-dose B vitamins for several years. He is advised to stop all vitamins and herbal supplements. We will check sedimentation rate and CRP Continue flat bed rest for now Possible blood patch in the next 2 or 3 days if severe CSF hypotension symptoms do not resolve with conservative treatment measures. (Juanjo Lamas MD) Peter Fuentes October 05, 2016 13:54 Juanjo Lamas MD October 05, 2016 20:26
--- NOTE | 2016-10-05 16:14 | EKG ---
Date Performed: 10/04/2016 Time Performed: 18:40:51 PTAGE: 56 years EKG: SINUS BRADYCARDIA LOW QRS VOLTAGE IN PRECORDIAL LEADS BORDERLINE ECG PREVIOUS TRACING : 08/01/2014 09.55 Compared to prior tracing no significant change DOCTOR: Raysa Ashton Interpretating Date/Time 10/05/2016 16:12:29
[2016-10-05 16:37] VITALS: BP 121/63; PULSE 53; RESP 20; TEMP 98; O2SAT 95
[2016-10-05 20:00] VITALS: BP 141/77; PULSE 61; RESP 18; TEMP 97.7; O2SAT 96
[2016-10-06] VITALS: BP 138/76; PULSE 56; RESP 18; TEMP 97.3; O2SAT 96
[2016-10-06] MEDS: MORPHINE SULFATE 4 MG/ML INJ IV PRN ×5 (01:39→16:44)
[2016-10-06 04:00] VITALS: BP 170/84; PULSE 50; RESP 18; TEMP 97.2; O2SAT 95
[2016-10-06] MEDS: HYDROmorphone HCL PF 1 MG/ML VIAL IV PRN ×2 (04:39→08:49)
[2016-10-06] MEDS: D5-NS + KCL 20 MEQ INJ 1,000 ML IV SCH ×2 (04:42→14:04)
[2016-10-06] MEDS: MORPHINE SULFATE 30 MG CONTROLLED RELEASE TAB PO SCH ×2 (06:08→13:31)
[2016-10-06 08:08] VITALS: BP 191/96; PULSE 54; RESP 20; TEMP 97.6; O2SAT 98
[2016-10-06] MEDS: SODIUM CHLORIDE 0.9% FLUSH 5 ML FLUSH IVF SCH (08:47)
[2016-10-06] MEDS: DOCUSATE SODIUM 100 MG CAP PO SCH (08:47)
[2016-10-06 08:48] LABS: ALKALINE PHOSPHATASE 81 U/L (45-117); ALT (GPT) 35 U/L (12-78); ANION GAP 6 MEQ/L (5-15); AST (GOT) 15 U/L (15-37); BICARBONATE 27.2 MEQ/L (21.0-32.0); BLOOD UREA NITROGEN 10 MG/DL (7-18); CHLORIDE 110 MEQ/L (98-107); GLOMERULAR FILTRATION RATE 91 ML/MIN (>89); POTASSIUM 4.3 MEQ/L (3.5-5.1); SODIUM (NA) 143 MEQ/L (136-145); TOTAL BILIRUBIN ADULT 0.3 MG/DL (0.2-1.0)
[2016-10-06] MEDS: amLODIPine BESYLATE 5 MG TAB PO SCH (08:48)
[2016-10-06] MEDS: PANTOPRAZOLE SOD 40 MG DELAYED RELEASE TAB PO SCH (08:48)
[2016-10-06] MEDS: HYDROmorphone HCL 2 MG TAB PO PRN (11:58)
[2016-10-06 12:32] VITALS: BP 135/83; PULSE 55; RESP 20; TEMP 98.3; O2SAT 96
[2016-10-06 15:59] VITALS: BP 121/71; PULSE 63; RESP 20; TEMP 97.2; O2SAT 96
--- NOTE | 2016-10-06 16:11 | HHI.NSPN ---
(Peter Fuentes) Note Status Status: Progress Note (Peter Fuentes) Interval History Interval History 10/04: 56-year-old male with spinal stenosis, history of previous spinal surgery , underwent myelogram-CT scan of the spine 10/03/16. Postoperatively, he has had persistent severe headache with intermittent nausea. No fevers or chills. No increased neck pain or stiffness since the myelogram. Presented to the emergency room today due to the intractable headache, not relieved with bedrest. Due to non-positional headache, patient is undergone CT scan of the brain 10/05: Patient doing good this afternoon when seen. He states that he has a headache, back pain, numbness to the legs with the right worse and tingling to the anterior thighs. 10/06: Patient seen with Dr Lamas. He denies any headache or pain and no change in the leg numbness or tingling. (Peter Fuentes) Labs, Micro, & Vital Signs Results Allergies Coded Allergies Type Severity Reaction Last Updated Verified Aleve Allergy Severe STOMACH PAIN 10/04/16 Yes Ibuprofen Allergy Severe NAUSEA VOMITING 10/04/16 Yes Recent Impressions Head CT 10/04/16 0000 Signed Impressions: Service Date/Time: Tuesday, October 04, 2016 18:20 - CONCLUSION: Contrast diffusely in the subarachnoid spaces as above. No acute abnormality seen. Fransisco Verdugo MD 06:00 18:00 06:00 18:00 06:00 18:00 Intake Total 240 ml 240 ml 360 ml Output Total 350 ml 20 ml Balance -110 ml 220 ml 360 ml Intake Oral 240 ml 240 ml 360 ml Output Urine Total 350 ml 20 ml # Voids 2 # Bowel Movements 1 Laboratory Tests Test 10/04/16 10/05/16 10/06/16 18:00 04:53 06:57 White Blood Count 5.7 TH/MM3 Red Blood Count 5.03 MIL/MM3 Hemoglobin 14.8 GM/DL Hematocrit 44.4 % Mean Corpuscular Volume 88.3 FL Mean Corpuscular Hemoglobin 29.4 PG Mean Corpuscular Hemoglobin 33.3 % Concent Red Cell Distribution Width 14.1 % Platelet Count 197 TH/MM3 Mean Platelet Volume 8.0 FL Neutrophils (%) (Auto) 54.0 % Lymphocytes (%) (Auto) 34.7 % Monocytes (%) (Auto) 7.6 % Eosinophils (%) (Auto) 3.2 % Basophils (%) (Auto) 0.5 % Neutrophils # (Auto) 3.1 TH/MM3 Lymphocytes # (Auto) 2.0 TH/MM3 Monocytes # (Auto) 0.4 TH/MM3 Eosinophils # (Auto) 0.2 TH/MM3 Basophils # (Auto) 0.0 TH/MM3 CBC Comment DIFF FINAL Differential Comment Sodium Level 146 MEQ/L 144 MEQ/L 143 MEQ/L Potassium Level 3.6 MEQ/L 4.2 MEQ/L 4.3 MEQ/L Chloride Level 110 MEQ/L 111 MEQ/L 110 MEQ/L Carbon Dioxide Level 24.3 MEQ/L 26.0 MEQ/L 27.2 MEQ/L Anion Gap 12 MEQ/L 7 MEQ/L 6 MEQ/L Blood Urea Nitrogen 12 MG/DL 13 MG/DL 10 MG/DL Creatinine 0.90 MG/DL 0.87 MG/DL 0.86 MG/DL Estimat Glomerular Filtration 87 ML/MIN 90 ML/MIN 91 ML/MIN Rate Random Glucose 94 MG/DL 119 MG/DL 98 MG/DL Calcium Level 8.6 MG/DL 8.6 MG/DL 8.6 MG/DL Magnesium Level 2.0 MG/DL Total Creatine Kinase 217 U/L Creatine Kinase MB 6.0 NG/ML Troponin I LESS THAN 0.02 NG/ML Erythrocyte Sedimentation Rate 3 mm/hr Total Bilirubin 0.3 MG/DL Aspartate Amino Transf 15 U/L (AST/SGOT) Alanine Aminotransferase 35 U/L (ALT/SGPT) Alkaline Phosphatase 81 U/L C-Reactive Protein 0.46 MG/DL Total Protein 6.4 GM/DL Albumin 3.2 GM/DL Vitamin B12 Level 477 PG/ML Thyroid Stimulating Hormone 1.820 uIU/ML 3rd Gen Constitutional Vital Signs Date Time Temp Pulse Resp B/P Pulse Ox O2 Delivery O2 Flow Rate FiO2 10/06/16 15:59 97.2 63 20 121/71 96 10/06/16 12:32 98.3 55 20 135/83 96 10/06/16 08:08 97.6 54 20 191/96 98 10/06/16 04:00 97.2 50 18 170/84 95 10/06/16 00:00 97.3 56 18 138/76 96 10/05/16 20:00 97.7 61 18 141/77 96 10/05/16 16:37 98.0 53 20 121/63 95 10/06/16 07:00 Intake Total 480 ml Output Total 370 ml Balance 110 ml (Peter Fuentes) Review of Systems/Exam ROS Constitutional: Patient denies any fever or chills. Neck: Patient complains of a stiff neck. Respiratory: Patient denies any shortness of breath or productive cough. Cardiovascular: Patient denies any chest pain, palpitations or irregular heart beat. Gastrointestinal: Patient denies any abdominal pain, nausea, vomiting or bowel incontinence. Extremities: Patient denies any pain or weakness to the extremities. Neurological: Patient still with numbness to both legs, the right being worse as well as tingling to both anterior thighs. He denies any headache or dizziness. Exam General: Well developed, well nourished male who appears his stated age, NAD. HEENT: Normocephalic, atraumatic. Respiratory: CTAB w/o W/R/R, equal excursion, non-laboured, on RA. Cardiovascular: S1S2 w/RRR w/o M/G/R, radial pulses 2+ bilaterally. Gastrointestinal: Abdomen soft, nontender, positive bowel sounds. Extremities: CASTILLO, no evident deformity, discolouration or clubbing noted. Neurological: AAOx3 Speech clear & appropriate Follows simple commands Decreased sensation to both lower extremities. Motor strength 5/5 RUE & RLE and 4/5 LUE & LLE. (Peter Fuetnes) Medications Current Medications Current Medications Medications (Trade) Dose Ordered Sig/Jenn Route Start Time Stop Time Status Last Admin ([place] 5-325 Mg) 1 tab Q4H PRN PO 10/04/16 22:15 (Dilaudid Pf Inj) 0.5 mg Q3H PRN IV 10/04/16 22:15 10/06/16 08:49 (Morphine Inj) 4 mg Q3H PRN IV 10/04/16 22:15 10/06/16 14:05 (Dilaudid) 2 mg Q4H PRN PO 10/04/16 22:15 10/06/16 11:58 (Narcan Inj) 0.4 mg UNSCH PRN IV 10/04/16 22:15 (Colace) 100 mg BID PO 10/05/16 09:00 10/06/16 08:47 (Protonix) 40 mg DAILY PO 10/05/16 09:00 10/06/16 08:48 (Zofran Inj) 4 mg Q6H PRN IV 10/04/16 22:15 (NS Flush) 2 ml UNSCH PRN IVF 10/04/16 22:15 IV Flush 2 ml 2 ml BID IVF 10/05/16 09:00 10/06/16 08:47 (D5-NS + KCl 20 Meq Inj) 1,000 ml @ 100 mls/hr Q10H IV 10/04/16 22:10 10/06/16 04:42 (Oramorph Sr) 30 mg Q8HR PO 10/05/16 06:00 10/06/16 13:31 (Norvasc) 5 mg DAILY PO 10/05/16 09:00 10/06/16 08:48 (Peter Fuentes) Medical Decision Making MDM Remarks Impression: 1. Low pressure CSF headache with nausea related to recent lumbar puncture. 2. Spinal stenosis ESR, TSH & B12 all WNL, CRP mildly elevated No headache, neurologically stable (ePter Fuentes) Plan Plan Remarks Pain control Mobilise patient If patient does well plan to d/c home and have f/u in 3-4 wks (Peter Fuentes) Attending Statement I have personally seen and examined the patient on the date of this note. Pertinent documentation and study results have been reviewed by the undersigned. I have personally developed the treatment plan and performed medical decision making. Agree with findings, exam, and treatment plan as noted above. Patient states that he feels quite a bit better today. He was able to ambulate without recurrent headache. Discussed with nursing staff He would like to discharge home today. Signs and symptoms to watch for and activity precautions discussed. He states that he has medications at home. We will see him back in approximately 1 week for evaluation. (Juanjo Lamas MD ) Peter Fuentes October 06, 2016 16:11 Juanjo Lamas MD October 06, 2016 16:49
--- NOTE | 2016-10-06 16:51 | HHI.DCPOC ---
Discharge Care Plan Diagnosis: (1) Intractable headache (2) Spinal stenosis of lumbar region Your Health Problems Are: Exercise Tolerance Chronic Pain Goals to Promote Your Health * To prevent worsening of your condition and complications * To maintain your health at the optimal level Directions to Meet Your Goals Take your medications as prescribed Follow your dietary instruction Follow activity as directed Keep your appointments as scheduled Take your immunizations and boosters as scheduled If your symptoms worsen call your PCP, if no PCP go to Urgent Care Center or Emergency Room Smoking is Dangerous to Your Health. Avoid second hand smoke Call the 24-hour hour crisis hotline for domestic abuse at Juanjo Lamas MD October 06, 2016 16:51
== END 2016-10-06 17:50 | disposition home or self-care (01) | DRG 103 ==
LOC: NEPC 15:47 → NEDA 19:28 → OBSVTOIN 22:14 → N05A 10-05 00:14
PROVIDERS: ADMIT Neurological Surgery; ATTEND Neurological Surgery
PROC: B01B1ZZ Fluoroscopy of Spinal Cord using Low Osmolar Contrast (ICD-10-PCS; principal; 2016-10-03)
DX: G97.1 Other reaction to spinal and lumbar puncture (principal); G62.9 Polyneuropathy, unspecified; G56.22 Lesion of ulnar nerve, left upper limb; M51.36 Other intervertebral disc degeneration, lumbar region; M48.00 Spinal stenosis, site unspecified; M51.16 Intervertebral disc disorders with radiculopathy, lumbar region; M19.90 Unspecified osteoarthritis, unspecified site; F17.210 Nicotine dependence, cigarettes, uncomplicated; F40.240 Claustrophobia; Y84.4 Aspiration of fluid as the cause of abnormal reaction of the patient, or of later complication, without mention of misadventure at the time of the procedure; Z88.6 Allergy status to analgesic agent; Z96.642 Presence of left artificial hip joint
CPT/HCPCS: 62305; 70450; 72125; 72128; 72131; 80048; 80053; 82550; 82552; 82607; 83735; 84443; 84484; 85025; 85610; 85652; 85730; 86140; 93005; 94150; 96374; 96375; J1170; J2270; J2405; J3480; Q9967